=== PATIENT | male | born 1955 | race Caucasian/White ===

== ENCOUNTER 2018-08-05 20:51 | Emergency (ER) | payer OTHER ==
[~2018-08-05] VITALS: Ht 170.2 cm; Wt 93.0 kg
[2018-08-05 20:51] VITALS: BP 167/82
--- NOTE | 2018-08-05 20:51 | NUR ---
PATIENT BIB ALS TO ER BED 5.
--- NOTE | 2018-08-05 20:58 | NUR ---
PT BIB EMS FOR SOB. PATIENT IS AWAKE ALERT AND ORIENTED. LUNG SOUNDS ARE CLEAR BUT DIMINISHED. PER , HOUSE REPAIR WAS BEING DONE EARLIER AT THEIR HOUSE AND PATIENT MAY HAVE INHALED DUST. BREATHING TX ORDERED. BED LOWERED WITH SIDE RAILS UP
--- NOTE | 2018-08-05 20:58 | NUR ---
DR. XAVIER BEDSIDE EVALUATING PT
[2018-08-05] MEDS ORDERED: ALBUTEROL SULFATE/IPRATROPIU 3 ML SOL IH ONE ×2 (21:05→22:20)
[2018-08-05] MEDS ORDERED: methylPREDNISolone SS 125 MG/2 ML VIAL IVP ONE (21:05)
[2018-08-05] MEDS ORDERED: MAG SULF 2000 MG/WATER PREMIX 50 ML IV ONE (21:05)
[2018-08-05 21:28] LABS: BASOPHILS % (AUTO) 0.2 % (0.0-2.0); EOSINOPHILS # (AUTO) 0.2 K/uL (0-0.4); EOSINOPHILS % (AUTO) 2.6 % (0.0-4.0); HEMATOCRIT 42.4 % (36-52); LYMPHOCYTES # (AUTO) 2.2 K/uL (2.0-11.5); LYMPHOCYTES % (AUTO) 36.4 % (20.5-51.1); MEAN CORPUSCULAR HEMOGLOBIN 30 pg (27-31); MEAN CORPUSCULAR HGB CONC 33 g/dL (33-37); MEAN CORPUSCULAR VOLUME 90.6 fL (80-94); MONOCYTES # (AUTO) 0.4 K/uL (0.8-1.0); MONOCYTES % (AUTO) 7.3 % (1.7-9.3); NEUTROPHILS # (AUTO) 3.3 K/uL (1.8-7.7); NEUTROPHILS % (AUTO) 53.5 % (42.2-75.2); PLATELET COUNT (AUTO) 124 K/uL (140-450); RED BLOOD CELL COUNT(AUTO) 4.68 MIL/uL (4.20-6.10); RED CELL DISTRIBUTION WIDTH 14.3 % (11.6-13.7); WHITE BLOOD COUNT (AUTO) 6.1 K/uL (4.8-10.8)
--- NOTE | 2018-08-05 21:29 | NUR ---
PT ON ROOM AIR AT THIS TIME. O2 SAT 100%
[2018-08-05 21:38] LABS: ANION GAP 11.4 (8-16); CREATININE 0.8 mg/dL (0.7-1.3); POTASSIUM 3.4 mmol/L (3.5-5.1)
[2018-08-05 21:45] LABS: ALBUMIN 3.7 g/dL (3.4-5.0); TOTAL BILIRUBIN 0.3 mg/dL (0.0-1.0)
--- NOTE | 2018-08-05 23:54 | NUR ---
PATIENT AMBULATED WITH NO S/S OF DISTRESS. NO SOB, CLEAR LUNG SOUNDS. O2 SAT 97% ON ROOM AIR
[2018-08-06 00:47] VITALS: BP 113/64
--- NOTE | 2018-08-06 00:47 | NUR ---
Patient discharged with v/s stable. Written and verbal after care instructions given and explained. Patient alert, oriented and verbalized understanding of instructions. Ambulatory with steady gait. All questions addressed prior to discharge. ID band removed. Patient advised to follow up with PMD. Rx of ZYTHROMAX, PREDNISONE AND ALBUTEROL given. Patient educated on indication of medication including possible reaction and side effects. Opportunity to ask questions provided and answered.
== END 2018-08-06 00:47 | disposition home or self-care (01) ==
LOC: MED 20:51
DX: J45.909 Unspecified asthma, uncomplicated (principal)
CPT/HCPCS: 36415; 71045; 80053; 84484; 85025; 87040; 94640; 94760; 96365; 96366; 96375; 99285; J2930; J3475; J7620; Q0092

== ENCOUNTER 2022-01-08 06:15 | Emergency (ER) | payer OTHER ==
[~2022-01-08] VITALS: Ht 167.6 cm; Wt 72.6 kg
[2022-01-08 06:15] VITALS: BP 168/90
--- NOTE | 2022-01-08 06:21 | NUR ---
Dr. Stanton examining patient.
[2022-01-08] MEDS ORDERED: ALBUTEROL 0.083% 2.5 MG/3 ML NEBU INH ONE (06:25)
--- NOTE | 2022-01-08 06:28 | NUR ---
PT ABDULAZIZ CHEATHAMS. TAKEN TO BED 4
--- NOTE | 2022-01-08 06:42 | NUR ---
Patient sitting in chair, A/Ox4, chest rise and fall symmetrical, no s/s of distress, patient on monitor.
--- NOTE | 2022-01-08 07:08 | NUR ---
Ultrasound at bedside.
--- NOTE | 2022-01-08 07:28 | NUR ---
Change of shift report given to AM shift nurse Bonita RN. AM shift nurse Bonita RN verbalized understanding of report, no further questions.
[2022-01-08 08:03] LABS: BASOPHILS % (AUTO) 0.3 % (0.0-2.0); EOSINOPHILS # (AUTO) 0.1 K/uL (0-0.4); EOSINOPHILS % (AUTO) 1.5 % (0.0-4.0); HEMATOCRIT 40.9 % (36-52); HEMOGLOBIN 13.5 g/dL (12.0-18.0); LYMPHOCYTES # (AUTO) 0.9 K/uL (2.0-11.5); LYMPHOCYTES % (AUTO) 19.4 % (20.5-51.1); MEAN CORPUSCULAR HEMOGLOBIN 30 pg (27-31); MEAN CORPUSCULAR HGB CONC 33 g/dL (33-37); MEAN CORPUSCULAR VOLUME 92.1 fL (80-94); MONOCYTES # (AUTO) 0.6 K/uL (0.8-1.0); MONOCYTES % (AUTO) 14.2 % (1.7-9.3); NEUTROPHILS # (AUTO) 2.9 K/uL (1.8-7.7); NEUTROPHILS % (AUTO) 64.6 % (42.2-75.2); PLATELET COUNT (AUTO) 99 K/uL (140-450); RED BLOOD CELL COUNT(AUTO) 4.44 MIL/uL (4.20-6.10); RED CELL DISTRIBUTION WIDTH 13.8 % (11.6-13.7); WHITE BLOOD COUNT (AUTO) 4.4 K/uL (4.8-10.8)
[2022-01-08 08:15] LABS: ALBUMIN 3.5 g/dL (3.4-5.0); ANION GAP 12.6 (8-16); CARBON DIOXIDE 28.8 mmol/L (21-32); CREATININE 1.1 mg/dL (0.6-1.3); POTASSIUM 3.4 mmol/L (3.5-5.1); TOTAL BILIRUBIN 0.3 mg/dL (0.0-1.0)
[2022-01-08 08:35] VITALS: BP 133/74
--- NOTE | 2022-01-08 08:37 | NUR ---
pt ambulated with steady gait to bathroom, pt requesting to change back into clothes, refusing gown at this time.
[2022-01-08] MEDS ORDERED: CETI-366 PO (08:50)
[2022-01-08] MEDS ORDERED: ALBU0.0912 IH (08:50)
--- NOTE | 2022-01-08 09:11 | NUR ---
virgil swabbed at this time
--- NOTE | 2022-01-08 09:11 | NUR ---
Patient discharged with v/s stable. Written and verbal after care instructions given and explained. Patient alert, oriented and verbalized understanding of instructions. Ambulatory with daughter, steady gait. All questions addressed prior to discharge. ID band removed. Patient advised to follow up with PMD. Rx of cetirizine hcl, albuterol (sent) given. Patient educated on indication of medication including possible reaction and side effects. Opportunity to ask questions provided and answered. copy of labs and imaging given
--- NOTE | 2022-01-08 09:35 | NUR ---
cd given and cosigned 2 nurse verification
== END 2022-01-08 06:24 | disposition home or self-care (01) ==
LOC: MED 06:15
DX: J40 Bronchitis, not specified as acute or chronic (principal); Z20.822 Contact with and (suspected) exposure to COVID-19
CPT/HCPCS: 36415; 71045; 80053; 83880; 84484; 85025; 85379; 87426; 93005; 93970; 94640; 94760; 99285; J7613; Q0092